=== PATIENT | female | born 1940 | race Caucasian/White ===

== ENCOUNTER 2016-05-14 13:48 | Observation (INO) ==
--- NOTE | 2016-05-14 17:11 | Emergency Department Note ---
Disposition Clinical Impression: Dementia Qualifiers: Dementia type: unspecified type Dementia behavioral disturbance: without behavioral disturbance Qualified Code(s): F03.90 - Unspecified dementia without behavioral disturbance Disposition: Still a Patient Referrals: Parvez Mason MD [Primary Care Provider] - Forms: ED Satisfaction Letter Altered Mental Status HPI - General Chief Complaint: ED Altered Mental Status Stated Complaint: AMS Sent by PCP Time Seen by Provider: 05/14/16 17:08 Source: patient Limitations: no limitations Nursing Notes Reviewed: Yes Vital Signs Reviewed: Yes - History of Present Illness HPI Narrative: 76-year-old who presents with visual hallucinations she sees before tricycle and talk to them. She has a history of dementia and was started on Seroquel and Friday and symptoms seem to be getting worse. complaint: altered mental status Onset (ago): day(s) Pain Severity: moderate Associated symptoms: Reports: denies other symptoms - Related Data Allergies Allergy/AdvReac Type Severity Reaction Status Date / Time ciprofloxacin [From Cipro] Allergy Hives Verified 05/14/16 13:57 Iodinated Contrast Media - Allergy Hives Verified 05/14/16 13:57 Oral and Sulfa (Sulfonamide Allergy Hives Verified 05/14/16 13:57 Antibiotics) Constitutional: Denies: fever, chills, weakness, weight change Eyes: Denies: eye pain, eye discharge, vision change ENT ED: Denies: ear pain, throat pain, dental pain, hearing loss, epistaxis, congestion, dysphagia Cardiovascular: Denies: chest pain, palpitations, dyspnea on exertion, edema, syncope Respiratory: Denies: cough, dyspnea, wheezes, hemoptysis, stridor Gastrointestinal: Denies: abdominal pain, nausea, vomiting, diarrhea, constipation, hematemesis, melena, hematochezia Genitourinary: Denies: dysuria, frequency, hematuria, discharge Musculoskeletal: Denies: back pain, neck pain, arthralgia, myalgia Integumentary: Denies: rash, abrasion, lesions Neurological: Denies: headache, weakness, numbness, paresthesias, confusion, abnormal gait, vertigo Psychiatric: Reports: visual hallucinations, other. Denies: anxiety, depression , suicidal thoughts, homicidal thoughts, auditory hallucinations Endocrine: Denies: fatigue Hematological/Lymphatic: Denies: easy bleeding, easy bruising Allergic/Immunologic: Denies: facial swelling, urticaria Past Medical History - Past Medical History Medical history: Reports: hyperlipidemia Psychiatric history: Reports: no psych history - Social History Smoking Status: Never smoker Smokeless Tobacco Status: No Alcohol use: Reports: none Drug use: Reports: none Physical Exam - General Limitations: no limitations General appearance: alert, in no apparent distress - Head Head exam: atraumatic, normocephalic, normal inspection - Eye Eye exam: Present: normal appearance, PERRL, EOMI - ENT ENT exam: normal exam, normal oropharynx, mucous membranes moist - Neck Neck exam: Present: normal inspection, full ROM, trachea midline - Chest Chest inspection: Present: normal inspection, symmetric chest wall rise - Respiratory Respiratory exam: Present: normal lung sounds bilaterally - Cardiovascular Cardiovascular exam: Present: regular rate, normal rhythm, normal heart sounds - Abdominal Exam Abdominal exam: Present: soft, Non-Tender. Absent: tenderness, distention, guarding, rebound, rigidity - Extremities Exam Extremities exam: Present: normal inspection, full ROM. Absent: tenderness, pedal edema - Expanded Lower Extremity Exam Neurovascular/Tendon exam: Absent: motor deficit, sensory deficit, tendon deficit Gait: observed and normal - Back Exam Back exam: Present: normal inspection, full ROM. Absent: tenderness - Neurological Exam Neurological exam: Present: alert, oriented X3 - Psychiatric Psychiatric exam: Present: normal affect, normal mood - Skin Skin exam: Present: warm, dry, intact, normal color Course Vital Signs Temperature 97.9 F 05/14/16 13:53 Pulse Rate 90 05/14/16 13:53 Respiratory Rate 18 05/14/16 13:53 Blood Pressure 138/84 05/14/16 13:53 O2 Sat by Pulse Oximetry 96 05/14/16 13:53 Temperature 97.9 F 05/14/16 13:53 Pulse Rate 95 05/14/16 19:00 Respiratory Rate 16 05/14/16 19:00 Blood Pressure 150/86 05/14/16 19:00 O2 Sat by Pulse Oximetry 97 05/14/16 19:00 Oxygen Delivery Oxygen Delivery Room Air Altered Mental Status - Lab Data Result diagrams: 05/14/16 17:36 05/14/16 17:36 Lab Results 05/14/16 05/14/16 05/14/16 Range/Units 17:36 17:36 17:36 WBC 6.7 (4.3-11.1) K/mcL RBC 4.56 (3.82-4.97) M/mcL Hgb 12.9 (11.5-15.4) g/dL Hct 42.2 (35.3-44.9) % MCV 92.5 (83.0-100.0) fL MCH 28.3 (28.0-33.3) pg MCHC 30.6 L (31.6-35.5) g/dL RDW 13.3 (11.5-14.5) % Plt Count 265 (140-400) K/mcL MPV 9.7 (9.4-12.4) fL Immature Gran % 0.3 (0-4) % Seg Neutrophils % 57.8 % Lymphocytes % 33.4 % Monocytes % 6.6 % Eosinophils % 1.5 % Basophils % 0.4 % Neutrophils # 3.9 (1.6-8.9) K/mcL Lymphocytes # 2.2 (0.6-4.6) K/mcL Monocytes # 0.4 (0.0-1.3) K/mcL Eosinophils # 0.1 (0.0-0.6) K/mcL Basophils # 0.0 (0.0-0.2) K/mcL PT 11.7 (9.4-12.1) Seconds INR 1.1 APTT 29.5 (26.0-36.0) Seconds Sodium 144 (136-145) mEq/L Potassium 4.1 (3.5-4.5) mEq/L Chloride 108 (98-109) mEq/L Carbon Dioxide 27 (19-29) mEq/L BUN 17 (7-20) mg/dL Creatinine 0.77 (0.57-1.11) mg/dL Est GFR ( Amer) > 60 (> 60) Est GFR (Non-Af Amer) > 60 (> 60) BUN/Creatinine Ratio 22 (6-26) Glucose 96 (70-99) mg/dL Calculated Osmolality 299 (280-300) Calcium 9.8 (8.6-10.8) mg/dL Total Bilirubin 0.8 (0.2-1.2) mg/dL Direct Bilirubin 0.3 (0.0-0.5) mg/dL Indirect Bilirubin 0.5 (0.0-1.2) mg/dL AST 9 (5-34) Units/L ALT < 6 (0-55) Units/L Alkaline Phosphatase 114 (38-126) Units/L Troponin I (0-0.03) ng/mL Serum Total Protein 7.5 (6.0-8.3) g/dL Albumin 4.1 (3.5-5.0) g/dL Globulin 3.4 (2.4-3.5) g/dL Albumin/Globulin Ratio 1.2 (1.1-2.2) Ethyl Alcohol < 10 (0-10) mg/dL 05/14/16 Range/Units 17:36 WBC (4.3-11.1) K/mcL RBC (3.82-4.97) M/mcL Hgb (11.5-15.4) g/dL Hct (35.3-44.9) % MCV (83.0-100.0) fL MCH (28.0-33.3) pg MCHC (31.6-35.5) g/dL RDW (11.5-14.5) % Plt Count (140-400) K/mcL MPV (9.4-12.4) fL Immature Gran % (0-4) % Seg Neutrophils % % Lymphocytes % % Monocytes % % Eosinophils % % Basophils % % Neutrophils # (1.6-8.9) K/mcL Lymphocytes # (0.6-4.6) K/mcL Monocytes # (0.0-1.3) K/mcL Eosinophils # (0.0-0.6) K/mcL Basophils # (0.0-0.2) K/mcL PT (9.4-12.1) Seconds INR APTT (26.0-36.0) Seconds Sodium (136-145) mEq/L Potassium (3.5-4.5) mEq/L Chloride (98-109) mEq/L Carbon Dioxide (19-29) mEq/L BUN (7-20) mg/dL Creatinine (0.57-1.11) mg/dL Est GFR ( Amer) (> 60) Est GFR (Non-Af Amer) (> 60) BUN/Creatinine Ratio (6-26) Glucose (70-99) mg/dL Calculated Osmolality (280-300) Calcium (8.6-10.8) mg/dL Total Bilirubin (0.2-1.2) mg/dL Direct Bilirubin (0.0-0.5) mg/dL Indirect Bilirubin (0.0-1.2) mg/dL AST (5-34) Units/L ALT (0-55) Units/L Alkaline Phosphatase (38-126) Units/L Troponin I 0.00 (0-0.03) ng/mL Serum Total Protein (6.0-8.3) g/dL Albumin (3.5-5.0) g/dL Globulin (2.4-3.5) g/dL Albumin/Globulin Ratio (1.1-2.2) Ethyl Alcohol (0-10) mg/dL TPA Checklist - LKW: 3-4.5 hrs Add. Contraindications Patient/family understanding: The patient/family members have been counseled and understood the risk, benefit , and alternatives of treatment. S.B.AJj - Regi Recommendation: Recommendation based on pending studies, treatments, or consults S.B.AJj Report Given to: Dr Carolynn Deluna Repor Time: 18:26
[2016-05-14 17:44] LABS: Basophils % 0.4 %; Eosinophils # 0.1 K/mcL (0.0-0.6); Eosinophils % 1.5 %; Hematocrit 42.2 % (35.3-44.9); Hemoglobin 12.9 g/dL (11.5-15.4); Immature Granulocytes % 0.3 % (0-4); Lymphocytes # 2.2 K/mcL (0.6-4.6); Lymphocytes % 33.4 %; Mean Corpuscular HGB Conc 30.6 g/dL (31.6-35.5); Mean Corpuscular Hemoglobin 28.3 pg (28.0-33.3); Mean Corpuscular Volume 92.5 fL (83.0-100.0); Mean Platelet Volume 9.7 fL (9.4-12.4); Monocytes # 0.4 K/mcL (0.0-1.3); Monocytes % 6.6 %; Neutrophils # 3.9 K/mcL (1.6-8.9); Platelet Count 265 K/mcL (140-400); Red Blood Count 4.56 M/mcL (3.82-4.97); Red Cell Distribution Width 13.3 % (11.5-14.5); Segmented Neutrophils % 57.8 %
[2016-05-14 17:54] LABS: INR 1.1; Prothrombin Time 11.7 Seconds (9.4-12.1)
[2016-05-14 17:57] LABS: Activated Partial Thrombo Time 29.5 Seconds (26.0-36.0)
[2016-05-14 17:58] LABS: Albumin 4.1 g/dL (3.5-5.0); Albumin/Globulin Ratio 1.2 (1.1-2.2); Alkaline Phosphatase 114 Units/L (38-126); Aspartate Amino Transferase 9 Units/L (5-34); BUN/Creatinine Ratio 22 (6-26); Bilirubin,Direct 0.3 mg/dL (0.0-0.5); Bilirubin,Indirect 0.5 mg/dL (0.0-1.2); Bilirubin,Total 0.8 mg/dL (0.2-1.2); Blood Urea Nitrogen 17 mg/dL (7-20); Calcium 9.8 mg/dL (8.6-10.8); Carbon Dioxide 27 mEq/L (19-29); Chloride 108 mEq/L (98-109); Globulin 3.4 g/dL (2.4-3.5); Glucose 96 mg/dL (70-99); Osmolality,Calculated 299 (280-300); Potassium 4.1 mEq/L (3.5-4.5); Sodium 144 mEq/L (136-145); Total Protein 7.5 g/dL (6.0-8.3); eGFR For African Americans > 60 (> 60); eGFR For Non-African Americans > 60 (> 60)
[2016-05-14 18:01] LABS: Alanine Aminotransferase < 6 Units/L (0-55); Ethanol < 10 mg/dL (0-10)
--- NOTE | 2016-05-14 19:46 | Emergency Department Note ---
Disposition Clinical Impression: Visual hallucinations Dementia Qualifiers: Dementia type: unspecified type Dementia behavioral disturbance: without behavioral disturbance Qualified Code(s): F03.90 - Unspecified dementia without behavioral disturbance Psychosis Qualifiers: Psychosis type: unspecified psychosis type Qualified Code(s): F29 - Unspecified psychosis not due to a substance or known physiological condition Disposition: Admitted As Inpatient Condition: Fair Referrals: Parvez Mason MD [Primary Care Provider] - Forms: ED Satisfaction Letter Time of Disposition: 22:39 Altered Mental Status HPI - General Chief Complaint: ED Altered Mental Status Stated Complaint: AMS Sent by PCP Time Seen by Provider: 05/14/16 17:08 Source: patient Limitations: no limitations Nursing Notes Reviewed: Yes Vital Signs Reviewed: Yes - History of Present Illness Pain Severity: moderate Associated symptoms: Reports: denies other symptoms - Related Data Allergies Allergy/AdvReac Type Severity Reaction Status Date / Time ciprofloxacin [From Cipro] Allergy Hives Verified 05/14/16 13:57 Iodinated Contrast Media - Allergy Hives Verified 05/14/16 13:57 Oral and Sulfa (Sulfonamide Allergy Hives Verified 05/14/16 13:57 Antibiotics) Constitutional: Denies: fever, chills, weakness, weight change Eyes: Denies: eye pain, eye discharge, vision change ENT ED: Denies: ear pain, throat pain, dental pain, hearing loss, epistaxis, congestion, dysphagia Cardiovascular: Denies: chest pain, palpitations, dyspnea on exertion, edema, syncope Respiratory: Denies: cough, dyspnea, wheezes, hemoptysis, stridor Gastrointestinal: Denies: abdominal pain, nausea, vomiting, diarrhea, constipation, hematemesis, melena, hematochezia Genitourinary: Denies: dysuria, frequency, hematuria, discharge Musculoskeletal: Denies: back pain, neck pain, arthralgia, myalgia Integumentary: Denies: rash, abrasion, lesions Neurological: Denies: headache, weakness, numbness, paresthesias, confusion, abnormal gait, vertigo Psychiatric: Reports: visual hallucinations, other. Denies: anxiety, depression , suicidal thoughts, homicidal thoughts, auditory hallucinations Endocrine: Denies: fatigue Hematological/Lymphatic: Denies: easy bleeding, easy bruising Allergic/Immunologic: Denies: facial swelling, urticaria Past Medical History - Past Medical History Medical history: Reports: hyperlipidemia Psychiatric history: Reports: no psych history - Social History Smoking Status: Never smoker Smokeless Tobacco Status: No Alcohol use: Reports: none Drug use: Reports: none Physical Exam - General Limitations: no limitations General appearance: alert, in no apparent distress Course Course Narrative: This patient was signed out to me at shift change from Dr. Paniagua. Please refer to his note for complete details of history and physical examination. Shift change the patient is awaiting a urinalysis result to make sure she does not have any occult infection. Otherwise labs have been normal. Patient is a 76-year-old female with history of dementia who has apparently been having some visual hallucinations over about 6 weeks which seem to be gradually getting worse. On examination the patient is a well-developed well-nourished well-appearing elderly female in no acute distress. She is alert and oriented 3. There is no cyanosis or diaphoresis. Breath sounds are clear and equal bilaterally. Heart regular rate and rhythm. No gross focal neurological deficits. Labs and imaging results reviewed. With the patient's who advised me that they were referred here by her primary care provider for a psychiatric evaluation. A urine tox screen was added to the patient's orders and the [facility] psych service was consulted to evaluate the patient. - Reevaluation(s) Reevaluation #1: Patient was seen and evaluated in the emergency department by the psychiatry service and after consultation with the psychiatrist they requested the patient be admitted to the medical service for observation and they will reevaluate in the morning. They were concerned about some possible urinary tract infection. Time: 22:15 - Consultations Consultation #1: The hospitalist,Dr. Mckeon, was consulted and accepted patient for observation on the medical service. Time: 20:25 Vital Signs Temperature 97.9 F 05/14/16 13:53 Pulse Rate 90 05/14/16 13:53 Respiratory Rate 18 05/14/16 13:53 Blood Pressure 138/84 05/14/16 13:53 O2 Sat by Pulse Oximetry 96 05/14/16 13:53 Temperature 97.9 F 05/14/16 13:53 Pulse Rate 95 05/14/16 19:00 Respiratory Rate 16 05/14/16 19:00 Blood Pressure 150/86 05/14/16 19:00 O2 Sat by Pulse Oximetry 97 05/14/16 19:00 Oxygen Delivery Oxygen Delivery Room Air Altered Mental Status - Medical Records Medical records reviewed: Yes I reviewed the patient's medical records. - Lab Data Lab results reviewed: Yes I reviewed the patient's lab results. Result diagrams: 05/14/16 17:36 05/14/16 17:36 Lab Results 05/14/16 05/14/16 05/14/16 Range/Units 17:36 17:36 17:36 WBC 6.7 (4.3-11.1) K/mcL RBC 4.56 (3.82-4.97) M/mcL Hgb 12.9 (11.5-15.4) g/dL Hct 42.2 (35.3-44.9) % MCV 92.5 (83.0-100.0) fL MCH 28.3 (28.0-33.3) pg MCHC 30.6 L (31.6-35.5) g/dL RDW 13.3 (11.5-14.5) % Plt Count 265 (140-400) K/mcL MPV 9.7 (9.4-12.4) fL Immature Gran % 0.3 (0-4) % Seg Neutrophils % 57.8 % Lymphocytes % 33.4 % Monocytes % 6.6 % Eosinophils % 1.5 % Basophils % 0.4 % Neutrophils # 3.9 (1.6-8.9) K/mcL Lymphocytes # 2.2 (0.6-4.6) K/mcL Monocytes # 0.4 (0.0-1.3) K/mcL Eosinophils # 0.1 (0.0-0.6) K/mcL Basophils # 0.0 (0.0-0.2) K/mcL PT 11.7 (9.4-12.1) Seconds INR 1.1 APTT 29.5 (26.0-36.0) Seconds Sodium 144 (136-145) mEq/L Potassium 4.1 (3.5-4.5) mEq/L Chloride 108 (98-109) mEq/L Carbon Dioxide 27 (19-29) mEq/L BUN 17 (7-20) mg/dL Creatinine 0.77 (0.57-1.11) mg/dL Est GFR ( Amer) > 60 (> 60) Est GFR (Non-Af Amer) > 60 (> 60) BUN/Creatinine Ratio 22 (6-26) Glucose 96 (70-99) mg/dL Calculated Osmolality 299 (280-300) Calcium 9.8 (8.6-10.8) mg/dL Total Bilirubin 0.8 (0.2-1.2) mg/dL Direct Bilirubin 0.3 (0.0-0.5) mg/dL Indirect Bilirubin 0.5 (0.0-1.2) mg/dL AST 9 (5-34) Units/L ALT < 6 (0-55) Units/L Alkaline Phosphatase 114 (38-126) Units/L Troponin I (0-0.03) ng/mL Serum Total Protein 7.5 (6.0-8.3) g/dL Albumin 4.1 (3.5-5.0) g/dL Globulin 3.4 (2.4-3.5) g/dL Albumin/Globulin Ratio 1.2 (1.1-2.2) Urine Color (Yellow) Urine Clarity (Clear) Urine pH (5.0-8.0) pH Units Ur Specific [place] (1.010-1.025) Urine Protein (Neg-Trace) mg/dL Urine Glucose (UA) (Normal) mg/dL Urine Ketones (Negative) mg/dL Urine Blood (Negative) Urine Nitrite (Negative) Urine Bilirubin (Negative) Urine Urobilinogen (Normal) mg/dL Ur Leukocyte Esterase (Negative) Urine Microscopic RBC (0-3) per hpf Urine Microscopic WBC (0-3) per hpf Ur Squamous Epith Cells (None-Few) per lpf Urine Bacteria (None-Few) per hpf Hyaline Casts (None-Few) per lpf Urine Mucus (Few) Ur Culture Indicated? (NO) Urine Opiates Screen (Rotwmf=318) ng/mL Ur Barbiturates Screen (Cjljre=673) ng/mL Ur Phencyclidine Scrn (Cutoff=25) ng/mL Ur Amphetamines Screen (Tesxjh=4778) ng/mL U Benzodiazepines Scrn (Sztqdv=134) ng/mL Urine Cocaine Screen (Cutoff= 300) ng/mL U Marijuana (THC) Screen (Cutoff = 50) ng/mL Ethyl Alcohol < 10 (0-10) mg/dL 05/14/16 05/14/16 05/14/16 Range/Units 17:36 19:42 19:43 WBC (4.3-11.1) K/mcL RBC (3.82-4.97) M/mcL Hgb (11.5-15.4) g/dL Hct (35.3-44.9) % MCV (83.0-100.0) fL MCH (28.0-33.3) pg MCHC (31.6-35.5) g/dL RDW (11.5-14.5) % Plt Count (140-400) K/mcL MPV (9.4-12.4) fL Immature Gran % (0-4) % Seg Neutrophils % % Lymphocytes % % Monocytes % % Eosinophils % % Basophils % % Neutrophils # (1.6-8.9) K/mcL Lymphocytes # (0.6-4.6) K/mcL Monocytes # (0.0-1.3) K/mcL Eosinophils # (0.0-0.6) K/mcL Basophils # (0.0-0.2) K/mcL PT (9.4-12.1) Seconds INR APTT (26.0-36.0) Seconds Sodium (136-145) mEq/L Potassium (3.5-4.5) mEq/L Chloride (98-109) mEq/L Carbon Dioxide (19-29) mEq/L BUN (7-20) mg/dL Creatinine (0.57-1.11) mg/dL Est GFR ( Amer) (> 60) Est GFR (Non-Af Amer) (> 60) BUN/Creatinine Ratio (6-26) Glucose (70-99) mg/dL Calculated Osmolality (280-300) Calcium (8.6-10.8) mg/dL Total Bilirubin (0.2-1.2) mg/dL Direct Bilirubin (0.0-0.5) mg/dL Indirect Bilirubin (0.0-1.2) mg/dL AST (5-34) Units/L ALT (0-55) Units/L Alkaline Phosphatase (38-126) Units/L Troponin I 0.00 (0-0.03) ng/mL Serum Total Protein (6.0-8.3) g/dL Albumin (3.5-5.0) g/dL Globulin (2.4-3.5) g/dL Albumin/Globulin Ratio (1.1-2.2) Urine Color Yellow (Yellow) Urine Clarity Clear (Clear) Urine pH 6.0 (5.0-8.0) pH Units Ur Specific [place] 1.018 (1.010-1.025) Urine Protein Negative (Neg-Trace) mg/dL Urine Glucose (UA) Normal (Normal) mg/dL Urine Ketones Negative (Negative) mg/dL Urine Blood Negative (Negative) Urine Nitrite Negative (Negative) Urine Bilirubin Negative (Negative) Urine Urobilinogen Normal (Normal) mg/dL Ur Leukocyte Esterase Moderate H (Negative) Urine Microscopic RBC 0-3 (0-3) per hpf Urine Microscopic WBC 3-5 H (0-3) per hpf Ur Squamous Epith Cells Moderate H (None-Few) per lpf Urine Bacteria Few (None-Few) per hpf Hyaline Casts Few (None-Few) per lpf Urine Mucus Moderate H (Few) Ur Culture Indicated? YES A (NO) Urine Opiates Screen Negative (Ztlkdi=205) ng/mL Ur Barbiturates Screen Negative (Wirmsp=179) ng/mL Ur Phencyclidine Scrn Negative (Cutoff=25) ng/mL Ur Amphetamines Screen Negative (Naxllp=7730) ng/mL U Benzodiazepines Scrn Negative (Hkeaya=072) ng/mL Urine Cocaine Screen Negative (Cutoff= 300) ng/mL U Marijuana (THC) Screen Negative (Cutoff = 50) ng/mL Ethyl Alcohol (0-10) mg/dL - Radiology Data Radiology results reviewed: Yes I reviewed the patient's radiology results. Chest X-Ray 05/14/16 17:08 IMPRESSION: Question of a small left pleural effusion. Otherwise, no acute cardiopulmonary disease. D/ / Braxton Hanson MD / Braxton Hanson MD Interpreting Provider: Braxton Hanson MD Head CT 05/14/16 17:08 IMPRESSION: No acute intracranial abnormality detected. Moderate age related changes in the brain are noted. D/ / Tony Livingston MD / Tony Livingston MD Interpreting Provider: Tony Livingston MD Checklist - LKW: 3-4.5 hrs Add. Contraindications Patient/family understanding: The patient/family members have been counseled and understood the risk, benefit , and alternatives of treatment.
[2016-05-14 19:52] LABS: Bilirubin,Urine Negative (Negative); Blood,Urine Negative (Negative); Clarity,Urine Clear (Clear); Color,Urine Yellow (Yellow); Glucose,Urine (UA) Normal (Normal); Ketones,Urine Negative (Negative); Leukocyte Esterase,Urine Moderate (Negative); Nitrite,Urine Negative (Negative); Protein,Urine Negative (Neg-Trace); Specific Gravity,Urine 1.018 (1.010-1.025); Urobilinogen,Urine Normal (Normal)
[2016-05-14 20:00] LABS: RBC,Urine 0-3 per hpf (0-3); Squamous Epithelial Cell,Urine Moderate per lpf (None-Few)
[2016-05-14 20:01] LABS: Bacteria,Urine Few per hpf (None-Few); Hyaline Casts,Urine Few per lpf (None-Few); Mucus,Urine Moderate (Few)
[2016-05-14 20:59] LABS: Amphetamine Screen,Urine Negative ng/mL (Cutoff=1000); Barbiturate Screen,Urine Negative ng/mL (Cutoff=200); Benzodiazepines Screen,Urine Negative ng/mL (Cutoff=200); Cannabinoid Screen,Urine Negative ng/mL (Cutoff = 50); Cocaine Screen,Urine Negative ng/mL (Cutoff= 300); Opiate Screen,Urine Negative ng/mL (Cutoff=300); Phencyclidine Screen,Urine Negative ng/mL (Cutoff=25)
[2016-05-14] MEDS ORDERED: Ondansetron ODT 4 MG TAB.RAPDIS SL PRN (23:42)
[2016-05-14] MEDS ORDERED: *HR* Morphine 2 MG/ML SYRINGE IVP PRN (23:42)
[2016-05-14] MEDS ORDERED: Acetaminophen 325 MG TABLET PO PRN (23:42)
[2016-05-14] MEDS ORDERED: Naloxone 0.4 MG/ML INJ IVP PRN (23:42)
--- NOTE | 2016-05-14 23:42 | Internal Med History&Physical ---
Date of Encounter: 05/14/16 Time of Encounter: 23:40 Assessment and Plan (1) UTI (urinary tract infection) Current visit: Yes Status: Acute Acute metabolic encephalopathy likely secondary to urinary tract infection in combination with dementia Start Rocephin, urine culture hold quetiapine for now She will be reassessed by psychiatry in the morning to consider inpatient psychiatry admission Qualifiers: Urinary tract infection type: site unspecified Hematuria presence: without hematuria Qualified Code(s): N39.0 - Urinary tract infection, site not specified (2) IBS (irritable bowel syndrome) Current visit: Yes Status: Acute Stable Qualifiers: Irritable bowel syndrome type: unspecified Qualified Code(s): K58.9 - Irritable bowel syndrome without diarrhea (3) Parkinson disease Current visit: Yes Status: Acute Continue medications Sinemet (4) Dementia Current visit: Yes Status: Acute Qualifiers: Dementia type: unspecified type Dementia behavioral disturbance: without behavioral disturbance Qualified Code(s): F03.90 - Unspecified dementia without behavioral disturbance (5) Visual hallucinations Current visit: Yes Status: Acute The patient will be admitted for observation. She is a full code. Time spent on this admission 40 minutes. High risk for complications due to UTI. Omeprazole for GI prophylaxis and subcutaneous heparin for DVT prophylaxis Internal Medicine - H&P: HPI Chief complaint: Altered mental status Plans for Post Hospital Care: Home History of present illness: Ms. Mccabe is a 76 year old female with a past medical history of IBS, dementia, Parkinson's, hyperlipidemia. Comes to the emergency room complaining of altered mental status accompanied by her who says that for the past month she has been having hallucinations at home, she has been seen people around and she is aware that they are not real. Was started on Seroquel by her primary care physician and she was told to come to the emergency room if her symptoms did not improve. CT scan of the head is unremarkable and chest x-ray shows just a small left pleural effusion, she denies any cough at the moment she is upset and is not willing to provide any information. Her heart rate was 95 pressure was 150/86. The patient was evaluated by the psychiatry service who wants to admit to the medical service to treat her urinary tract infection and then reevaluate her in the morning to consider inpatient psych admission. says that the patient start was started on dicyclomine 30 days ago and these exacerbated her symptoms as well. Urine tox screens negative, her UA shows leukocyte esterase moderate and 5 white blood cells, she denies dysuria at the moment but would like to be treated. Past Med Surg Social Fam HX - Past Medical History Medical history: hyperlipidemia, other (Dementia, irritable bowel syndrome, appendectomy. Anemia, Parkinson's) Psychiatric history: no psych history - Past Surgical History Surgical History: hysterectomy, other (Carpal tunnel syndrome surgery and right shoulder surgery) - Social History Smoking Status: Never smoker Smokeless Tobacco Status: No Alcohol use: none Drug use: none - Additional Family History Additional family history: Mother with dementia Internal Medicine - H&P: Meds Aspirin [Lo-Dose Aspirin EC] 81 mg PO DAILY 05/14/16 [History] Atorvastatin [Lipitor] 10 mg PO DAILY 05/14/16 [History] Carbidopa/Levodopa ER 50/200 [Sinemet ER 50-200 TAB] 1 tab PO TID 05/14/16 [ History] Omeprazole [PriLOSEC] 20 mg PO BID 05/14/16 [History] Ondansetron ODT [Zofran ODT] 4 mg PO TID PRN 05/14/16 [History] Quetiapine Fumarate [SEROquel] 25 mg PO BID 05/14/16 [History] Ropinirole [Requip] 2 mg PO TID 05/14/16 [History] Allergies ciprofloxacin [From Cipro] Allergy (Verified 05/14/16 13:57) Hives Iodinated Contrast Media - Oral and Allergy (Verified 05/14/16 13:57) Hives Sulfa (Sulfonamide Antibiotics) Allergy (Verified 05/14/16 13:57) Hives All Systems PM: A 10-system review of systems was performed and is negative for pertinent findings except as documented above in the HPI. Review of systems: No chest pain, shortness of breath, no abdominal pain, no diarrhea. Other systems out of the 10 reviewed were negative - Constitutional Vitals: Temp Pulse Resp BP Pulse Ox 97.9 F 95 16 150/86 97 05/14/16 13:53 05/14/16 19:00 05/14/16 19:00 05/14/16 19:00 05/14/16 19:00 General appearance: Present: A&O X 3 - Head Head exam: Present: atraumatic, normocephalic - Eye Eye exam: Present: PERRL, conjuntiva pink, sclera anicteric Pupils: Present: PERRL - Neck Neck exam general surgery: Present: supple, trachea midline. Absent: lymphadenopathy - Respiratory Respiratory exam: Present: CTAB. Absent: accessory muscle use, rales, rhonchi, wheezes - Cardiovascular Cardiovascular exam: Present: RRR, +S1, +S2. Absent: diastolic murmur, gallop, rubs, systolic murmur - GI/Abdominal GI/Abdominal exam: Present: normal bowel sounds, soft, no peritoneal signs. Absent: distended, tenderness - Extremities Exam Extremities exam: Present: warm, radial pulses palpable and symetrical. Absent : calf tenderness, cyanotic, pedal edema - Neurological Exam Neurological exam: Present: CN II-XII intact, oriented X3, no focal deficits. Absent: pronater drift, facial droop, speech deficit - Skin Skin exam: Present: dry, intact Internal Med - H&P Results - Labs CBC & Chem 7: 05/14/16 17:36 05/14/16 17:36
[2016-05-15] MEDS: 0.9 % Sodium Chloride 1,000 ML IVC SCH ×2 (01:54→20:31)
[2016-05-15] MEDS: Carbidopa/Levodopa ER 50/200 TABLET PO SCH ×4 (01:55→20:25)
[2016-05-15] MEDS: rOPINIRole 1 MG TABLET PO SCH ×4 (01:55→20:25)
[2016-05-15] MEDS: *HR* Heparin 5,000 UNIT/ML VIAL SQ SCH ×4 (01:56→23:24)
[2016-05-15 06:17] LABS: BUN/Creatinine Ratio 19 (6-26); Blood Urea Nitrogen 14 mg/dL (7-20); Calcium 9.1 mg/dL (8.6-10.8); Carbon Dioxide 21 mEq/L (19-29); Chloride 108 mEq/L (98-109); Glucose 96 mg/dL (70-99); Osmolality,Calculated 292 (280-300); Sodium 141 mEq/L (136-145); eGFR For African Americans > 60 (> 60); eGFR For Non-African Americans > 60 (> 60)
[2016-05-15 06:19] LABS: Potassium 4.7 mEq/L (3.5-4.5)
[2016-05-15] MEDS: Aspirin Enteric Coated 81 MG Tablet PO SCH (08:13)
--- NOTE | 2016-05-15 10:57 | Consult Note ---
Date of Encounter: 05/15/16 Time of Encounter: 10:00 Assessment & Recommendation (1) Psychosis Current visit: Yes Status: Acute Assessment & Recommendation: Patient has had visual hallucinations with paranoia for the past month or so. This apparently coincided with starting bentyl for IBS. Patient has not noted improvement since stopping medication. It is unclear if the medication simply exacerbated an underlying issue related to her dementia, or if she has not cleared from the effects of the Bentyl yet. Will admit recommend restarting Seroquel at 12.5 twice a day and 25 mg at bedtime. Discussed with patient's that she should get the 12.5 mg dose in the morning, one around 3 PM, and the 25 mg dosage prior to bedtime. They will follow-up with me at the counseling center on 05/30/2016 at 10:30 AM. Please make sure patient has appointment time and counseling center phone number so that they can call with questions or concerns. Thank you for this consultation. Qualifiers: Psychosis type: other Qualified Code(s): F28 - Other psychotic disorder not due to a substance or known physiological condition (2) Dementia Current visit: Yes Status: Acute Assessment & Recommendation: Patient has history of dementia with some mild paranoia. We will start medications as above. Qualifiers: Dementia type: unspecified type Dementia behavioral disturbance: without behavioral disturbance Qualified Code(s): F03.90 - Unspecified dementia without behavioral disturbance History of Present Illness Patient: new to practice Requesting Physician: Eileen Claire Reason for consult: Visual hallucinations History of present illness: Ms. Mccabe is a 76 year old female with history of Parkinson's as well as dementia and recent UTI presented to the hospital with hallucinations for the past month. Patient was admitted medically and treated for her UTI. She reports that she was given until about a month ago for items of irritable bowel syndrome and since that time she has been increasingly paranoid with visual hallucinations. is present and Cristofer reports that patient gets agitated and sees women in his bed at night. Patient reports that she has concerns that her may be cheating on her. Prior to this time patient did not have any issues with hallucinations. Patient reports occasional episodes of depression but does not feel chronically depressed. She denies suicidal or homicidal ideation, intent, or plan. She has never had a diagnosis of bipolar disorder or schizophrenia. She has no previous psychiatric treatment. She was started on Seroquel 25 mg by mouth twice a day by her primary care provider. When hallucinations did not improve with the medicine she was sent to the hospital for further evaluation. Patient does not use illicit drugs. She lives with her . She has been diagnosed with dementia and Parkinson's. CC: Eileen Claire Past Med Surg Social Fam HX - Past Medical History Medical history: hyperlipidemia, other - Past Psychiatric History Psychiatric history: Reports: anxiety, other (Dementia). Denies: prior suicide attempt, previous psychiatric hospitalization Family psychiatric history: Yes Family Psychiatric History Details: Mom had dementia Family History of Suicide: None - Past Surgical History Surgical History: hysterectomy, other - Social History Smoking Status: Never smoker Smokeless Tobacco Status: No Alcohol use: none Drug use: none Current living situation: Home - Family History Father Hx Family Cardiac Disorders: Yes Medications & Allergies Aspirin [Lo-Dose Aspirin EC] 81 mg PO DAILY 05/14/16 [History] Atorvastatin [Lipitor] 10 mg PO HS 05/14/16 [History] Carbidopa/Levodopa ER 50/200 [Sinemet ER 50-200 TAB] 1 tab PO TID 05/14/16 [ History] Omeprazole [PriLOSEC] 20 mg PO BID 05/14/16 [History] Ondansetron ODT [Zofran ODT] 4 mg PO TID PRN 05/14/16 [History] Quetiapine Fumarate [SEROquel] 25 mg PO BID 05/14/16 [History] Ropinirole [Requip] 2 mg PO TID 05/14/16 [History] LORazepam [Ativan] 0.5 mg PO TID PRN 05/15/16 [History] Allergies ciprofloxacin [From Cipro] Allergy (Verified 05/14/16 13:57) Hives Iodinated Contrast Media - Oral and Allergy (Verified 05/14/16 13:57) Hives Sulfa (Sulfonamide Antibiotics) Allergy (Verified 05/14/16 13:57) Hives Review of Systems Constitutional: Denies: fever, chills, weakness, weight change Eyes: Denies: eye pain, vision change Ears, Nose, Throat: Denies: ear pain, throat pain, dental pain, hearing loss, congestion Cardiovascular: Denies: chest pain, palpitations, dyspnea on exertion Respiratory: Denies: cough, dyspnea, wheezes Gastrointestinal: Denies: abdominal pain, nausea, vomiting, diarrhea, constipation Genitourinary male: Denies: urgency, dysuria, frequency, genital lesions Genitourinary female: Denies: urgency, dysuria, frequency, abnormal menses, dyspareunia Musculoskeletal: Denies: joint swelling, joint pain Integumentary: Denies: rash, lesions, pruritus Neurological: Denies: headache, weakness, numbness, memory loss Psychiatric: Reports: anxiety, visual hallucinations, confusion, mood swings Endocrine: Denies: fatigue, heat or cold intolerance Hematologic/Lymphatic: Denies: easy bruising, lymphadenopathy Allergic/Immunologic: Denies: urticaria, itchy eyes Mental Status Exam Patient orientation: Yes Person, Yes Time, Yes Place Level of alertness: Alert Patient appearance: Appropriate, Well Groomed Behavior: calm, cooperative Psychomotor activity: Normal Eye contact: Maintains Eye Contact Mood description: Euthymic/stable Affect description: congruent with mood Speech pattern: Normal rate, Normal rhythm, Normal tone Speech volume: Normal Thought process: Immaculata Thought content: No Suicidal ideation, No Homicidal ideation, No Overt delusions Perceptual disturbances: No Auditory hallucinations, Yes Visual hallucinations Attention span: Capable of Focused Attention Memory description: Grossly Intact Patient reliability: Questionable Historian Intelligence estimate: Average Judgment: Limited Insight: Partial Results - Vital Signs Vital signs: Temp Pulse Resp BP Pulse Ox 98.1 F 79 15 107/59 94 L 05/15/16 06:49 05/15/16 06:49 05/15/16 06:49 05/15/16 06:49 05/15/16 06:49 - Labs Labs: Laboratory Last Values WBC 6.7 K/mcL (4.3-11.1) 05/14/16 17:36 RBC 4.56 M/mcL (3.82-4.97) 05/14/16 17:36 Hgb 12.9 g/dL (11.5-15.4) 05/14/16 17:36 Hct 42.2 % (35.3-44.9) 05/14/16 17:36 MCV 92.5 fL (83.0-100.0) 05/14/16 17:36 MCH 28.3 pg (28.0-33.3) 05/14/16 17:36 MCHC 30.6 g/dL (31.6-35.5) L 05/14/16 17:36 RDW 13.3 % (11.5-14.5) 05/14/16 17:36 Plt Count 265 K/mcL (140-400) 05/14/16 17:36 MPV 9.7 fL (9.4-12.4) 05/14/16 17:36 Immature Gran % 0.3 % (0-4) 05/14/16 17:36 Seg Neutrophils % 57.8 % 05/14/16 17:36 Lymphocytes % 33.4 % 05/14/16 17:36 Monocytes % 6.6 % 05/14/16 17:36 Eosinophils % 1.5 % 05/14/16 17:36 Basophils % 0.4 % 05/14/16 17:36 Neutrophils # 3.9 K/mcL (1.6-8.9) 05/14/16 17:36 Lymphocytes # 2.2 K/mcL (0.6-4.6) 05/14/16 17:36 Monocytes # 0.4 K/mcL (0.0-1.3) 05/14/16 17:36 Eosinophils # 0.1 K/mcL (0.0-0.6) 05/14/16 17:36 Basophils # 0.0 K/mcL (0.0-0.2) 05/14/16 17:36 PT 11.7 Seconds (9.4-12.1) 05/14/16 17:36 INR 1.1 05/14/16 17:36 APTT 29.5 Seconds (26.0-36.0) 05/14/16 17:36 Sodium 141 mEq/L (136-145) 05/15/16 04:46 Potassium 4.7 mEq/L (3.5-4.5) H 05/15/16 04:46 Chloride 108 mEq/L (98-109) 05/15/16 04:46 Carbon Dioxide 21 mEq/L (19-29) 05/15/16 04:46 BUN 14 mg/dL (7-20) 05/15/16 04:46 Creatinine 0.73 mg/dL (0.57-1.11) 05/15/16 04:46 Est GFR ( Amer) > 60 (> 60) 05/15/16 04:46 Est GFR (Non-Af Amer) > 60 (> 60) 05/15/16 04:46 BUN/Creatinine Ratio 19 (6-26) 05/15/16 04:46 Glucose 96 mg/dL (70-99) 05/15/16 04:46 Calculated Osmolality 292 (280-300) 05/15/16 04:46 Calcium 9.1 mg/dL (8.6-10.8) 05/15/16 04:46 Total Bilirubin 0.8 mg/dL (0.2-1.2) 05/14/16 17:36 Direct Bilirubin 0.3 mg/dL (0.0-0.5) 05/14/16 17:36 Indirect Bilirubin 0.5 mg/dL (0.0-1.2) 05/14/16 17:36 AST 9 Units/L (5-34) 05/14/16 17:36 ALT < 6 Units/L (0-55) 05/14/16 17:36 Alkaline Phosphatase 114 Units/L (38-126) 05/14/16 17:36 Troponin I 0.00 ng/mL (0-0.03) 05/14/16 17:36 Serum Total Protein 7.5 g/dL (6.0-8.3) 05/14/16 17:36 Albumin 4.1 g/dL (3.5-5.0) 05/14/16 17:36 Globulin 3.4 g/dL (2.4-3.5) 05/14/16 17:36 Albumin/Globulin Ratio 1.2 (1.1-2.2) 05/14/16 17:36 Urine Color Yellow (Yellow) 05/14/16 19:43 Urine Clarity Clear (Clear) 05/14/16 19:43 Urine pH 6.0 pH Units (5.0-8.0) 05/14/16 19:43 Ur Specific [place] 1.018 (1.010-1.025) 05/14/16 19:43 Urine Protein Negative mg/dL (Neg-Trace) 05/14/16 19:43 Urine Glucose (UA) Normal mg/dL (Normal) 05/14/16 19:43 Urine Ketones Negative mg/dL (Negative) 05/14/16 19:43 Urine Blood Negative (Negative) 05/14/16 19:43 Urine Nitrite Negative (Negative) 05/14/16 19:43 Urine Bilirubin Negative (Negative) 05/14/16 19:43 Urine Urobilinogen Normal mg/dL (Normal) 05/14/16 19:43 Ur Leukocyte Esterase Moderate (Negative) H 05/14/16 19:43 Urine Microscopic RBC 0-3 per hpf (0-3) 05/14/16 19:43 Urine Microscopic WBC 3-5 per hpf (0-3) H 05/14/16 19:43 Ur Squamous Epith Cells Moderate per lpf (None-Few) H 05/14/16 19:43 Urine Bacteria Few per hpf (None-Few) 05/14/16 19:43 Hyaline Casts Few per lpf (None-Few) 05/14/16 19:43 Urine Mucus Moderate (Few) H 05/14/16 19:43 Ur Culture Indicated? YES (NO) A 05/14/16 19:43 Urine Opiates Screen Negative ng/mL (Dgsasd=808) 05/14/16 19:42 Ur Barbiturates Screen Negative ng/mL (Mnqhpf=141) 05/14/16 19:42 Ur Phencyclidine Scrn Negative ng/mL (Cutoff=25) 05/14/16 19:42 Ur Amphetamines Screen Negative ng/mL (Lakhjw=9917) 05/14/16 19:42 U Benzodiazepines Scrn Negative ng/mL (Gzgwim=013) 05/14/16 19:42 Urine Cocaine Screen Negative ng/mL (Cutoff= 300) 05/14/16 19:42 U Marijuana (THC) Screen Negative ng/mL (Cutoff = 50) 05/14/16 19:42 Ethyl Alcohol < 10 mg/dL (0-10) 05/14/16 17:36 Consult Discharge Plan - Plan Referrals: Parvez Mason MD [Primary Care Provider] -
--- NOTE | 2016-05-15 11:58 | Electrocardiograph Report ---
[facility] Test Date: 2016-05-14 Pat Name: Ashanti Mccabe Department: 105 Room: 3B41 Gender: F Community Service Specialist: JAVAN : 1940 Requested By: Geo Paniagua Order Number: [id number] Reading MD: Nabil Mcclain MD Measurements Intervals [place] Rate: 78 P: 11 MS: 205 QRS: -7 QRSD: 77 T: -5 QT: 370 QTc: 404 Interpretive Statements SINUS RHYTHM LOW QRS VOLTAGE IN PRECORDIAL LEADS VOLTAGE CRITERIA FOR LVH POOR R WAVE PROGRESSION Electronically Signed On 05-15-16 11:57:45 EST by Nabil Mcclain MD
--- NOTE | 2016-05-15 17:43 | Internal Med Progress Note ---
Date of Encounter: 05/15/16 Time of Encounter: 17:24 - Assessment and plan (1) Visual hallucinations Current Visit: Yes Status: Acute Assessment and plan: she had one episode today at noon. although she has hallucinations, she is calm and not agitated, mood is stable. unclear etiology, This apparently coincided with starting bentyl for IBS, which has been stopped. psych recommended starting Seroquel, as her today and observe overnight. she has no focal neuro defecits. (2) IBS (irritable bowel syndrome) Current Visit: Yes Status: Acute Assessment and plan: was started on bentyl that has been stopped. unclear if starting bentyl caused the hallucinations. stable now. Qualifiers: Irritable bowel syndrome type: unspecified Qualified Code(s): K58.9 - Irritable bowel syndrome without diarrhea (3) Parkinson disease Current Visit: Yes Status: Acute Assessment and plan: h/o parkinsons and dementia. takes levedopa and carbidopa that has been continued here. (4) UTI (urinary tract infection) Current Visit: Yes Status: Acute Assessment and plan: has no symptoms. LE is moderate, will continue ceftriaxone for now that was started, will dc once cx is negative. Qualifiers: Urinary tract infection type: site unspecified Hematuria presence: without hematuria Qualified Code(s): N39.0 - Urinary tract infection, site not specified (5) Dementia Current Visit: Yes Status: Acute Qualifiers: Dementia type: unspecified type Dementia behavioral disturbance: without behavioral disturbance Qualified Code(s): F03.90 - Unspecified dementia without behavioral disturbance - Time Spent With Patient 25 - 35 minutes - Subjective Interval history: seen at the bedside, appears calm and is orientedx3. reports that she did not have any hallucinations last night however she had one episode around noon when she was seeing her grandkids. seen by psych and was recomended to add seroquel, does not need transfer to psych floor as per the psych notes. - Constitutional Vitals: Temp Pulse Resp BP Pulse Ox 97.4 F L 79 15 142/82 97 05/15/16 15:19 05/15/16 15:19 05/15/16 15:19 05/15/16 15:19 05/15/16 15:19 General appearance: Present: A&O X 3 Exam: neck- supple chest- b/lc lear,no added sounds CVS- s1 and s2, no mr//g abd-soft, non tender, bs are present ext-no edema neuro- no focal deficits, alert and awake Internal Medicine: Result - Labs CBC & Chem 7: 05/14/16 17:36 05/15/16 04:46 Labs: BMP 05/15/16 04:46 Sodium 141 Potassium 4.7 H Chloride 108 Carbon Dioxide 21 BUN 14 Creatinine 0.73 Glucose 96 Calcium 9.1 - ABG Interpretation ABG results: PT/INR, D-dimer PT 11.7 Seconds (9.4-12.1) 05/14/16 17:36 Consult Discharge Plan - Plan Referrals: [facility] [Provider Group] - 05/30/16 10:30 am Parvez Mason MD [Primary Care Provider] -
[2016-05-16] MEDS: Carbidopa/Levodopa ER 50/200 TABLET PO SCH (07:51)
[2016-05-16] MEDS: rOPINIRole 1 MG TABLET PO SCH (07:51)
[2016-05-16] MEDS: Aspirin Enteric Coated 81 MG Tablet PO SCH (07:52)
[2016-05-16] MEDS: *HR* Heparin 5,000 UNIT/ML VIAL SQ SCH (07:52)
[2016-05-16 11:58] VITALS: BP 135/87
--- NOTE | 2016-05-16 12:41 | Discharge Summary ---
Date of Encounter: 05/16/16 Time of Encounter: 12:37 - Discharge Diagnosis (1) Visual hallucinations Priority: Primary Status: Acute (2) IBS (irritable bowel syndrome) Priority: Secondary Status: Acute Qualifiers: Irritable bowel syndrome type: unspecified Qualified Code(s): K58.9 - Irritable bowel syndrome without diarrhea (3) Parkinson disease Priority: Secondary Status: Acute (4) UTI (urinary tract infection) Priority: Secondary Status: Acute Qualifiers: Urinary tract infection type: site unspecified Hematuria presence: without hematuria Qualified Code(s): N39.0 - Urinary tract infection, site not specified (5) Dementia Priority: Secondary Status: Acute Qualifiers: Dementia type: unspecified type Dementia behavioral disturbance: without behavioral disturbance Qualified Code(s): F03.90 - Unspecified dementia without behavioral disturbance - Discharge Medications Prescriptions: Quetiapine Fumarate [Seroquel] 12.5 mg PO 0900,1500 #60 tablet Quetiapine Fumarate [Seroquel] 25 mg PO HS #30 tablet Home Medications: Aspirin [Lo-Dose Aspirin EC] 81 mg PO DAILY 05/14/16 [History] Atorvastatin [Lipitor] 10 mg PO HS 05/14/16 [History] Carbidopa/Levodopa ER 50/200 [Sinemet ER 50-200 Tab] 1 tab PO TID 05/14/16 [ History] Omeprazole [PriLOSEC] 20 mg PO BID 05/14/16 [History] Ondansetron ODT [Zofran ODT] 4 mg PO TID PRN 05/14/16 [History] Ropinirole [Requip] 2 mg PO TID 05/14/16 [History] LORazepam [Ativan] 0.5 mg PO TID PRN 05/15/16 [History] Quetiapine Fumarate [Seroquel] 12.5 mg PO 0900,1500 #60 tablet 05/16/16 [Rx] Quetiapine Fumarate [Seroquel] 25 mg PO HS #30 tablet 05/16/16 [Rx] Allergies/Adverse Reactions: Allergies ciprofloxacin [From Cipro] Allergy (Verified 05/14/16 13:57) Hives Iodinated Contrast Media - Oral and Allergy (Verified 05/14/16 13:57) Hives Sulfa (Sulfonamide Antibiotics) Allergy (Verified 05/14/16 13:57) Hives Date of admission: 05/14/16 23:35 Primary care physician: Parvez Treadwell Consults: 05/15/16 00:06 Consult to Psychiatry [CONS] Routine Consulting Provider: Sirena Moore Reason for Consult: hallucinations, ER called and services saw the patient already Call Completed: No 05/16/16 09:45 Consult to Arc Air Operator [CONS] Routine Reason for SW Consult: can't take care of her at home Discharging clinician: Gustavo Marques Anticipated date of discharge: 05/16/16 - Patient Status Disposition: Home, Self-Care Condition: Fair Functional capacity at discharge: independent ambulation Overall status at discharge: patient is back to baseline - Discharge Instructions Instructions: Urinary Tract Infection in Women (DC), Alzheimer Disease (DC), Dementia (GEN), Parkinson's Disease, Exterminator Helper (GEN) Follow Up With: [facility] [Provider Group] - 05/30/16 10:30 am Parvez Mason MD [Primary Care Provider] - 05/21/16 2:15 pm - Diet and Activity Activity: resume usual activities as tolerated Diet: advance to your usual diet Interval History: Ms. Mccabe is a 76 year old female with a past medical history of IBS, dementia, Parkinson's, hyperlipidemia. Comes to the emergency room complaining of altered mental status accompanied by her who says that for the past month she has been having hallucinations at home, she has been seen people around and she is aware that they are not real. Was started on Seroquel by her primary care physician and she was told to come to the emergency room if her symptoms did not improve. CT scan of the head is unremarkable and chest x-ray shows just a small left pleural effusion, she denies any cough at the moment she is upset and is not willing to provide any information. Her heart rate was 95 pressure was 150/86. The patient was evaluated by the psychiatry service who wants to admit to the medical service to treat her urinary tract infection and then reevaluate her in the morning to consider inpatient psych admission. says that the patient start was started on dicyclomine 30 days ago and these exacerbated her symptoms as well. Urine tox screens negative, her UA shows leukocyte esterase moderate and 5 white blood cells, she denies dysuria at the moment but would like to be treated. Hospital course: Patient has had visual hallucinations w ith paranoia for the past month or so. This apparently coincided with starting bentyl for IBS. Patient has not noted improvement since stopping medication. It is unclear if the medication simply exacerbated an underlying issue related to her dementia, or if she has not cleared from the effects of the Bentyl yet. psych was consulted and recommended restarting Seroquel at 12.5 twice a day and 25 mg at bedtime. phil has not had any further episodes after being started on seroquel. as psych explained that she did not need hospital admission and can be dc on seroquel to f/u as OP with psych, she is being dc to home she has no urinary symptoms and has remained afebrile, IV antibiotics was stopped. she was offered home health which she declined, Time spent discussing smoking cessation with patient: more than 10 minutes - Time Spent with Patient Total time spent providing and/or coordinating discharge services: Greater than 30 minutes - Constitutional Vitals: Temp Pulse Resp BP Pulse Ox 97.3 F L 64 15 135/87 93 L 05/16/16 11:56 05/16/16 11:56 05/16/16 11:56 05/16/16 11:56 05/16/16 11:56 General appearance: Present: A&O X 3 Exam: General appearance: Present: A&O X 3 - Head Head exam: Present: atraumatic, normocephalic - Eye Eye exam: Present: PERRL, conjuntiva pink, sclera anicteric Pupils: Present: PERRL - Neck Neck exam general surgery: Present: supple, trachea midline. Absent: lymphadenopathy - Respiratory Respiratory exam: Present: CTAB. Absent: accessory muscle use, rales, rhonchi, wheezes - Cardiovascular Cardiovascular exam: Present: RRR, +S1, +S2. Absent: diastolic murmur, gallop, rubs, systolic murmur - GI/Abdominal GI/Abdominal exam: Present: normal bowel sounds, soft, no peritoneal signs. Absent: distended, tenderness - Extremities Exam Extremities exam: Present: warm, radial pulses palpable and symetrical. Absent : calf tenderness, cyanotic, pedal edema - Neurological Exam Neurological exam: Present: CN II-XII intact, oriented X3, no focal deficits. Absent: pronater drift, facial droop, speech deficit - Skin Skin exam: Present: dry, intact
== END 2016-05-16 13:28 | disposition home or self-care (01) ==
LOC: EMEROO 13:48 → 3BNU 13:48
PROVIDERS: ADMIT Internal Medicine; ATTEND Nurse Practitioner Family